=== PATIENT | female | born 1990 | race Caucasian/White ===

== ENCOUNTER 2023-10-13 12:49 | Emergency (ER) | payer MEDICAID ==
[~2023-10-13] VITALS: Ht 152.4 cm; Wt 70.0 kg
[2023-10-13 13:06] VITALS: TEMP 98.1; O2SAT 98
[2023-10-13] MEDS: KETOROLAC 60MG/2ML VIAL IM STA (15:56)
[2023-10-13] MEDS ORDERED: CYCL5TAB MT (18:10)
[2023-10-13] MEDS ORDERED: NAPR-681 MT (18:10)
[2023-10-13 18:15] VITALS: BP 125/74; PULSE 85; RESP 17
== END 2023-10-13 18:20 | disposition home or self-care (01) ==
LOC: ER 13:43
DX: S39.012A Strain of muscle, fascia and tendon of lower back, initial encounter (principal); Z98.890 Other specified postprocedural states; X58.XXXA Exposure to other specified factors, initial encounter; Y93.89 Activity, other specified; Y92.89 Other specified places as the place of occurrence of the external cause; Y99.8 Other external cause status
CPT/HCPCS: 81025; 72100; 96372; 99283; J1885; Z7610